=== PATIENT | male | born 1980 | race American Indian/Alaskan Native ===

== ENCOUNTER 2018-07-28 18:38 | Inpatient (IN) | payer MEDICARE ==
[2018-07-28] MEDS ORDERED: ZOFRAN IV ONE (19:07)
[2018-07-28] MEDS ORDERED: NACL 0.9% 1000 ML 1,000 ML IV ONE (19:07)
--- NOTE | 2018-07-28 19:11 | Emergency Department Report ---
ED GI Bleed HPI - General Chief complaint: GI Bleed Stated complaint: VOMITING BLOOD/BLOODY STOOL Time Seen by Provider: 07/28/18 19:06 Source: patient, EMS Mode of arrival: Stretcher Limitations: No Limitations - History of Present Illness Initial comments: Patient is a 38-year-old male presents to emergency room with complaints of epigastric pain and blood in his vomitus and blood in his stool. Patient states his symptoms started 2 days ago. Patient states symptoms worsened. Patient states abdominal pain is a 10 out of 10. Patient denies fever or chills. Patient states the pain is better with rest and worse with eating and palpation. Patient is also complaining of suicidal homicidal ideations. Patient states his plan is to stab himself. Patient status been feeling depressed. Patient denies alcohol use. Patient denies drug use. MD complaint: gross hematemesis, gross hematochezia -: Sudden Location: epigastric Severity scale (0 -10): 9 Quality: sharp Consistency: constant Improves with: rest Worsens with: eating, movement Associated Symptoms: abdominal pain, nausea, vomiting, malaise. denies: epistaxis, fever/chills, headaches, loss of appetite, easy bruising, rash, shortness of breath, syncope, weakness Treatments Prior to Arrival: none - Related Data Allergies Allergy/AdvReac Type Severity Reaction Status Date / Time No Known Allergies Allergy Unverified 07/28/18 18:54 ED Review of Systems ROS: Stated complaint: VOMITING BLOOD/BLOODY STOOL Other details as noted in HPI Constitutional: denies: chills, fever Eyes: denies: eye pain, eye discharge, vision change ENT: denies: ear pain, throat pain Respiratory: denies: cough, shortness of breath, wheezing Cardiovascular: denies: chest pain, palpitations Endocrine: no symptoms reported Gastrointestinal: abdominal pain, nausea, vomiting, hematemesis, hematochezia. denies: diarrhea Genitourinary: denies: urgency, dysuria Musculoskeletal: denies: back pain, joint swelling, arthralgia Skin: denies: rash, lesions Neurological: denies: headache, weakness, paresthesias Psychiatric: depression, homicidal thoughts, suicidal thoughts. denies: anxiety, auditory hallucinations, visual hallucinations Hematological/Lymphatic: denies: easy bleeding, easy bruising ED Past Medical Hx - Past Medical History Previous Medical History?: Yes Hx Psychiatric Treatment: Yes (schizophrenia, bipolar) - Surgical History Past Surgical History?: Yes Additional Surgical History: hernia repair - Family History Family history: no significant - Social History Smoking Status: Current Every Day Smoker Substance Use Type: None ED Physical Exam - General Limitations: No Limitations General appearance: alert, in no apparent distress - Head Head exam: Present: atraumatic, normocephalic - Eye Eye exam: Present: normal appearance, PERRL Pupils: Present: normal accommodation - ENT ENT exam: Present: mucous membranes moist - Neck Neck exam: Present: normal inspection - Respiratory Respiratory exam: Present: normal lung sounds bilaterally. Absent: respiratory distress - Cardiovascular Cardiovascular Exam: Present: regular rate, normal rhythm. Absent: systolic murmur, diastolic murmur, rubs, gallop - GI/Abdominal GI/Abdominal exam: Present: soft, normal bowel sounds. Absent: distended, tenderness, guarding - Rectal Rectal exam: Present: deferred - Extremities Exam Extremities exam: Present: normal inspection - Back Exam Back exam: Present: normal inspection - Neurological Exam Neurological exam: Present: alert, oriented X3 - Psychiatric Psychiatric exam: Present: depressed, flat affect, homicidal ideation, suicidal ideation - Skin Skin exam: Present: warm, dry, intact, normal color. Absent: rash ED Course Vital Signs 07/28/18 07/28/18 18:42 18:56 Temperature 98.3 F 98.6 F Pulse Rate 74 74 Respiratory 16 16 Rate Blood Pressure 118/68 Blood Pressure 118/68 [Right] O2 Sat by Pulse 99 99 Oximetry - Reevaluation(s) Reevaluation #1: Upon initial evaluation, Patient was placed on 1013. 07/28/18 20:20 Discussed all results with patient. Patient will be admitted to the hospitalist service. Patient agrees to plan of care. 07/28/18 20:26 - Consultations Consultation #1: GI paged 07/28/18 20:20 Discussed case with LUCIA Stanley. GI recommends admission to the hospitalist service and nothing by mouth after midnight for a scope in the morning. Protonix 40 mg IV twice a day. 07/28/18 20:25 Consultation #2: Hospitalist consultation for admission. Hospitalist to admit patient. Hospitalist to assume care patient. 07/28/18 20:26 ED Medical Decision Making - Lab Data Result diagrams: 07/28/18 19:22 07/28/18 19:22 - Radiology Data Radiology results: report reviewed PROCEDURE: CT ABDOMEN PELVIS WO CON TECHNIQUE: Computerized axial tomography of the abdomen and pelvis was performed after the IV injection of iodinated nonionic contrast. CT DOSE LENGTH PRODUCT: 785.6 mGycm HISTORY: abd pain PROCEDURE: CT ABDOMEN PELVIS WO CON TECHNIQUE: Computerized axial tomography of the abdomen and pelvis was performed without intravenous contrast. This study is performed without intravascular contrast material and its sensitivity for abdominal and pelvic pathology, including neoplasms, inflammation, abscess, free fluid, thrombosis, arterial dissection and infarction, is reduced compared with a contrast enhanced study. CT DOSE LENGTH PRODUCT: 785.6 mGycm HISTORY: abd pain COMPARISONS: None . FINDINGS: Liver, spleen, pancreas and adrenal glands are within normal limits. Bilateral kidneys demonstrate normal density without calculi or hydronephrosis. Urinary bladder is partially filled with normal outlines. Aorta is of normal caliber. Minimal degree of free fluid is noted in the. There is no free air. Gallbladder is unremarkable. Small bowel loops are within normal limits. 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 Appendix is normal. Vertebral height is normal. IMPRESSION: No acute intra-abdominal or pelvic pathology. - Medical Decision Making Patient is a 38-year-old male presents emergency room with multiple complaints. Patient complaints include nausea and vomiting, abdominal pain, vomiting blood, bright red blood per rectum and suicidal homicidal ideation. Patient placement and 13. Patient's labs unremarkable. CT negative. GI consult. Patient to be admitted to the hospitalist service. - Differential Diagnosis GI bleed. Abdominal pain. HI, SI. Depression. Critical Care Time: Yes Critical care attestation.: If time is entered above; I have spent that time in minutes in the direct care of this critically ill patient, excluding procedure time. Critical Care Time: 45 minutes ED Disposition Clinical Impression: Hematemesis with nausea, Suicidal ideations, Homicidal ideations Abdominal pain Qualifiers: Abdominal location: epigastric Qualified Code(s): R10.13 - Epigastric pain GI bleed Qualifiers: GI bleed type/associated pathology: unspecified gastrointestinal hemorrhage type Qualified Code(s): K92.2 - Gastrointestinal hemorrhage, unspecified Disposition: -09 OP ADMIT IP TO THIS HOSP Is pt being admited?: Yes Does the pt Need Aspirin: No Condition: Critical Time of Disposition: 20:28
[2018-07-28 19:44] LABS: Basophils % (Auto) 0.5 % (0.0-1.8); Eosinophils # (Auto) 0.3 K/mm3 (0.0-0.4); Eosinophils % (Auto) 5.7 % (0.0-4.3); Hematocrit 37.6 % (35.5-45.6); Hemoglobin 13.2 gm/dl (11.8-15.2); Lymphocytes # (Auto) 1.7 K/mm3 (1.2-5.4); Lymphocytes % (Auto) 30.1 % (13.4-35.0); Mean Corpuscular HGB Conc 35 % (32-34); Mean Corpuscular Volume 86 fl (84-94); Monocytes # (Auto) 0.5 K/mm3 (0.0-0.8); Monocytes % (Auto) 9.6 % (0.0-7.3); Platelet Count 273 K/mm3 (140-440); Red Blood Count 4.36 M/mm3 (3.65-5.03)
[2018-07-28 19:59] LABS: Alanine Aminotransferase 24 units/L (7-56); Albumin 3.9 g/dL (3.9-5); BUN/Creatinine Ratio 2; Blood Urea Nitrogen 2 mg/dL (9-20); Calcium 9.1 mg/dL (8.4-10.2); Hemolysis Index 13
[2018-07-28 20:03] LABS: Amphetamine Screen,Urine PRESUMPTIVE NEGATIVE; Benzodiazepines Screen,Urine PRESUMPTIVE NEGATIVE; Cannabinoid Screen,Urine PRESUMPTIVE NEGATIVE; Cocaine Screen,Urine PRESUMPTIVE NEGATIVE; Methadone Screen,Urine PRESUMPTIVE NEGATIVE; Opiate Screen,Urine PRESUMPTIVE NEGATIVE
[2018-07-28 20:08] LABS: Bilirubin,Urine NEG (Negative); Blood,Urine NEG (Negative); Color,Urine Straw (Yellow); Protein,Urine <15 mg/dL mg/dL (Negative); Urobilinogen,Urine < 2.0 mg/dL (<2.0)
[2018-07-28] MEDS ORDERED: PROTONIX IV ONE (20:25)
--- NOTE | 2018-07-28 21:27 | Cat Scan Report ---
PROCEDURE: CT ABDOMEN PELVIS WO CON TECHNIQUE: Computerized axial tomography of the abdomen and pelvis was performed after the IV inject ion of iodinated nonionic contrast. CT DOSE LENGTH PRODUCT: 785.6 mGycm HISTORY: abd pain PROCEDURE: CT ABDOMEN PELVIS WO CON TECHNIQUE: Computerized axial tomography of the abdomen and pelvis was performed without intravenous contrast. This study is performed without intravascular contrast material and its sensitivity for ab dominal and pelvic pathology, including neoplasms, inflammation, abscess, free fluid, thrombosis, art erial dissection and infarction, is reduced compared with a contrast enhanced study. CT DOSE LENGTH PRODUCT: 785.6 mGycm HISTORY: abd pain COMPARISONS: None . FINDINGS: Liver, spleen, pancreas and adrenal glands are within normal limits. Bilateral kidneys demonstrate no rmal density without calculi or hydronephrosis. Urinary bladder is partially filled with normal outli robin. Aorta is of normal caliber. Minimal degree of free fluid is noted in the. There is no free air. Gallbladder is unremarkable. Small bowel loops are within normal limits. There is malrotation of colo n without any evidence of obstruction. Appendix is normal. Vertebral height is normal. IMPRESSION: No acute intra-abdominal or pelvic pathology. This document is electronically signed by Georges Valenzuela MD., Jul 28 2018 09:25:50 PM ET
[2018-07-28] MEDS ORDERED: SODIUM CHLORIDE FLUSH SYRINGE 10 ML IV PRN (22:21)
[2018-07-28] MEDS ORDERED: DILAUDID IV PRN (22:21)
[2018-07-28] MEDS ORDERED: ZOFRAN IV PRN (22:21)
[2018-07-28] MEDS ORDERED: TYLENOL PO PRN (22:21)
[2018-07-28] MEDS ORDERED: PERCOCET 5/325 PO PRN (22:21)
[2018-07-28] MEDS ORDERED: K-DUR PO ONE (22:25)
--- NOTE | 2018-07-28 22:28 | History and Physical Report ---
History of Present Illness Date of examination: 07/28/18 Chief complaint: Bloody emesis History of present illness: Patient is a 38 year old -[place] male with history of psychiatric di sorder who presented to the ED on account of 2-3 days history of bloody emesis which he described as dark red in color. He also has positive history of passage of dark stool. He has associated generalized abdominal pain, shortness of breath, exertion, palpitation, dry cough, headaches and lightheadedness. He denies chest pain, fever, chills, sore throat, runny nose or congestion, leg swelling, orthopnea or PND. No history of chronic NSAID use. He reports prior history of presenting complaint about 3 months ago in another hospital, however no endoscopy was done. In the ED, patient admits to having suicidal ideation. He plans to kill himself with a knife. No prior history of suicide attempts. He was then placed on 1013. Past History Past Medical History: other (schizophrenia and bipolar disorder) Past Surgical History: hernia repair Social history: smoking (he has 9 years history of cigarette smoking. He currently smokes one pack of cigarette per day. He denies alcohol or illicit drug use) Family history: other (reviewed and noncontributory to GI bleed) Medications and Allergies Allergies Allergy/AdvReac Type Severity Reaction Status Date / Time No Known Allergies Allergy Verified 07/28/18 22:25 Active Meds: Active Medications Acetaminophen (Tylenol) 650 mg PO Q4H PRN PRN Reason: Pain MILD(1-3)/Fever >100.5/ZAMBRANO Hydromorphone HCl (Dilaudid) 0.5 mg IV Q3H PRN PRN Reason: Pain , Severe (7-10) Potassium Chloride/Sodium Chloride (Ns/Kcl 20meq) 20 meq in 1,000 mls @ 100 mls/hr IV DIRECT SEBAS Ondansetron HCl (Zofran) 4 mg IV Q8H PRN PRN Reason: Nausea And Vomiting Oxycodone/Acetaminophen (Percocet 5/325) 1 tab PO Q6H PRN PRN Reason: Pain, Moderate (4-6) Pantoprazole Sodium (Protonix) 40 mg IV QDAY SEBAS Potassium Chloride (K-Dur) 20 meq PO ONCE ONE Stop: 07/28/18 22:26 Sodium Chloride (Sodium Chloride Flush Syringe 10 Ml) 10 ml IV BID SEBAS Sodium Chloride (Sodium Chloride Flush Syringe 10 Ml) 10 ml IV PRN PRN PRN Reason: LINE FLUSH Review of Systems All systems: negative (except as documented in the HPI, 14 point system reviewed were negative) Exam - Constitutional Vitals: Temp Pulse Resp BP Pulse Ox 98.6 F 74 16 118/68 99 07/28/18 18:56 07/28/18 18:56 07/28/18 18:56 07/28/18 18:56 07/28/18 18:56 General appearance: Present: no acute distress - EENT Eyes: Present: PERRL, EOM intact ENT: hearing intact, clear oral mucosa - Neck Neck: Present: supple - Respiratory Respiratory effort: normal Respiratory: bilateral: CTA - Cardiovascular Rhythm: regular Heart Sounds: Present: S1 & S2 - Extremities Extremities: pulses symmetrical, No edema - Abdominal General gastrointestinal: Present: soft, tender (mild and generalized), normal bowel sounds Male genitourinary: Present: deferred - Integumentary Integumentary: Present: clear, warm, dry - Musculoskeletal Musculoskeletal: strength equal bilaterally - Psychiatric Psychiatric: other (positive suicidal ideation) - Neurologic Neurologic: CNII-XII intact Results - Labs CBC & Chem 7: 07/28/18 22:35 07/28/18 19:22 Labs: Laboratory Last Values WBC 5.6 K/mm3 (4.5-11.0) 07/28/18 19:22 RBC 4.36 M/mm3 (3.65-5.03) 07/28/18 19:22 Hgb 13.2 gm/dl (11.8-15.2) 07/28/18 19:22 Hct 37.6 % (35.5-45.6) 07/28/18 19:22 MCV 86 fl (84-94) 07/28/18 19:22 MCH 30 pg (28-32) 07/28/18 19:22 MCHC 35 % (32-34) H 07/28/18 19:22 RDW 14.0 % (13.2-15.2) 07/28/18 19:22 Plt Count 273 K/mm3 (140-440) 07/28/18 19:22 Lymph % (Auto) 30.1 % (13.4-35.0) 07/28/18 19:22 [place] % (Auto) 9.6 % (0.0-7.3) H 07/28/18 19:22 Eos % (Auto) 5.7 % (0.0-4.3) H 07/28/18 19:22 Baso % (Auto) 0.5 % (0.0-1.8) 07/28/18 19:22 Lymph # 1.7 K/mm3 (1.2-5.4) 07/28/18 19:22 [place] # 0.5 K/mm3 (0.0-0.8) 07/28/18 19:22 Eos # 0.3 K/mm3 (0.0-0.4) 07/28/18 19:22 Baso # 0.0 K/mm3 (0.0-0.1) 07/28/18 19:22 Seg Neutrophils % 54.1 % (40.0-70.0) 07/28/18 19:22 Seg Neutrophils # 3.0 K/mm3 (1.8-7.7) 07/28/18 19:22 Sodium 141 mmol/L (137-145) 07/28/18 19:22 Potassium 3.4 mmol/L (3.6-5.0) L 07/28/18 19:22 Chloride 102.4 mmol/L (98-107) 07/28/18 19:22 Carbon Dioxide 24 mmol/L (22-30) 07/28/18 19:22 18 mmol/L 07/28/18 19:22 BUN 2 mg/dL (9-20) L 07/28/18 19:22 1.0 mg/dL (0.8-1.5) 07/28/18 19:22 Estimated GFR > 60 ml/min 07/28/18 19:22 2 % 07/28/18 19:22 Glucose 92 mg/dL (75-100) 07/28/18 19:22 Calcium 9.1 mg/dL (8.4-10.2) 07/28/18 19:22 0.40 mg/dL (0.1-1.2) 07/28/18 19:22 AST 70 units/L (5-40) H 07/28/18 19:22 ALT 24 units/L (7-56) 07/28/18 19:22 85 units/L (35-129) 07/28/18 19:22 7.1 g/dL (6.3-8.2) 07/28/18 19:22 3.9 g/dL (3.9-5) 07/28/18 19:22 1.2 % 07/28/18 19:22 Straw (Yellow) 07/28/18 19:32 Clear (Clear) 07/28/18 19:32 7.0 (5.0-7.0) 07/28/18 19:32 Ur Specific [place] 1.003 (1.003-1.030) 07/28/18 19:32 <15 mg/dl mg/dL (Negative) 07/28/18 19:32 Neg mg/dL (Negative) 07/28/18 19:32 Neg mg/dL (Negative) 07/28/18 19:32 Neg (Negative) 07/28/18 19:32 Neg (Negative) 07/28/18 19:32 Neg (Negative) 07/28/18 19:32 < 2.0 mg/dL (<2.0) 07/28/18 19:32 Ur Leukocyte Esterase Neg (Negative) 07/28/18 19:32 0.0 /HPF (0.0-6.0) 07/28/18 19:32 1.0 /HPF (0.0-6.0) 07/28/18 19:32 Salicylates < 0.3 mg/dL (2.8-20.0) L 07/28/18 19:22 Presumptive negative 07/28/18 19:32 Presumptive negative 07/28/18 19:32 Acetaminophen < 5.0 ug/mL (10.0-30.0) L 07/28/18 19:22 Ur Barbiturates Screen Presumptive negative 07/28/18 19:32 Ur Phencyclidine Scrn Presumptive negative 07/28/18 19:32 Ur Amphetamines Screen Presumptive negative 07/28/18 19:32 U Benzodiazepines Scrn Presumptive negative 07/28/18 19:32 Presumptive negative 07/28/18 19:32 U Marijuana (THC) Screen Presumptive negative 07/28/18 19:32 Disclamer 07/28/18 19:32 Plasma/Serum Alcohol < 0.01 % (0-0.07) 07/28/18 19:22 Assessment and Plan Assessment and plan: Upper and lower GI bleed -H/H stable, will monitor closely -On IV Protonix -GI consulted in the ED Mild hypokalemia -We will replete and monitor K level -We'll check magnesium level Suicidal ideation -On 1013 Transaminitis -We will monitor level Psychiatric disorder (schizophrenia and bipolar) -Psych team follow-up DVT prophylaxis with SCD Disposition: For psych evaluation when medically cleared Time spent: 38 minutes
[2018-07-28 22:45] LABS: Hematocrit 37.3 % (35.5-45.6); Hemoglobin 12.9 gm/dl (11.8-15.2)
[2018-07-29 06:30] LABS: Hematocrit 38.9 % (35.5-45.6); Hemoglobin 13.1 gm/dl (11.8-15.2)
[2018-07-29 06:49] LABS: Alanine Aminotransferase 20 units/L (7-56); Albumin 3.5 g/dL (3.9-5); BUN/Creatinine Ratio 3; Blood Urea Nitrogen 3 mg/dL (9-20); Calcium 8.7 mg/dL (8.4-10.2); Hemolysis Index 8
[2018-07-29 07:03] LABS: Bilirubin,Direct < 0.2 mg/dL (0-0.2)
--- NOTE | 2018-07-29 08:22 | Progress Note ---
Assessment and Plan Assessment and plan: Patient is a 38 yo man with a history of schizophrenia, bipolar disoder and tobacco dependency who presented to [facility] with bloody emesis and dark stools. In the ED, patient admits to having suicidal ideation. He plans to kill himself with a knife. No prior history of suicide attempts. He was then placed on 101. Upper and lower GI bleed with H/H normal: treat with iv protonix and consulted GI, will monitor cbc closely Mild hypokalemia-We will replete and monitor K level Suicidal ideation-On 1012: consulted Psych Isolated AST mild elevation, 70-->47, normal ALT, bilirubin, alk phosph: continue to monitor Psychiatric disorder (schizophrenia and bipolar)-Psych team follow-up Hypokalemia: repleted and normal, continue to monitor bmp Tobacco dependency: counseled on stopping DVT prophylaxis with SCD Disposition: continue inpatient care, await GI and psych evaluation and then d/c to inpatient psych when medically cleared History Interval history: Patient was seen and examined. Follow-up on current diagnosis of bloody emesis and SI. No overnight events reported to me. Patient denies any chest pain, shortness breath, or severe headaches. Imaging, nursing note, chart, labs and old chart reviewed. Discussed with patient. Hospitalist Physical - Physical exam Narrative exam: Gen: WDWN, NAD, Awake, Alert, Orientated HEENT: NCAT, EOMI, PERRL, OP Clear Neck: supple, no adenopathy, no thyromegaly, no JVD CVS/Heart: RRR, normal S1S2, pulses present bilaterally Chest/Lungs: CTA B, Symmetrical chest expansion, good air entry bilaterally GI/Abdomen: soft, NTND, good bowel sounds, no guarding or rebound /Bladder: no suprapubic tenderness, no CVA or paraspinal tenderness Extermity/Skin: no c/c/e, no obvious rash MSK: FROM x 4 Neuro: CN 2-12 grossly intact, no new focal deficits Psych: calm - Constitutional Vitals: Temp Pulse Resp BP Pulse Ox 98.0 F 62 18 113/68 96 07/29/18 06:11 07/29/18 06:11 07/29/18 06:11 07/29/18 06:11 07/29/18 06:11 General appearance: Present: no acute distress Results - Labs CBC & Chem 7: 07/29/18 05:56 07/29/18 05:56 Labs: Laboratory Last Values WBC 5.6 K/mm3 (4.5-11.0) 07/28/18 19:22 RBC 4.36 M/mm3 (3.65-5.03) 07/28/18 19:22 Hgb 13.1 gm/dl (11.8-15.2) 07/29/18 05:56 Hct 38.9 % (35.5-45.6) 07/29/18 05:56 MCV 86 fl (84-94) 07/28/18 19:22 MCH 30 pg (28-32) 07/28/18 19:22 MCHC 35 % (32-34) H 07/28/18 19:22 RDW 14.0 % (13.2-15.2) 07/28/18 19:22 Plt Count 273 K/mm3 (140-440) 07/28/18 19:22 Lymph % (Auto) 30.1 % (13.4-35.0) 07/28/18 19:22 [place] % (Auto) 9.6 % (0.0-7.3) H 07/28/18 19:22 Eos % (Auto) 5.7 % (0.0-4.3) H 07/28/18 19:22 Baso % (Auto) 0.5 % (0.0-1.8) 07/28/18 19:22 Lymph # 1.7 K/mm3 (1.2-5.4) 07/28/18 19:22 [place] # 0.5 K/mm3 (0.0-0.8) 07/28/18 19:22 Eos # 0.3 K/mm3 (0.0-0.4) 07/28/18 19:22 Baso # 0.0 K/mm3 (0.0-0.1) 07/28/18 19:22 Seg Neutrophils % 54.1 % (40.0-70.0) 07/28/18 19:22 Seg Neutrophils # 3.0 K/mm3 (1.8-7.7) 07/28/18 19:22 Sodium 142 mmol/L (137-145) 07/29/18 05:56 Potassium 3.7 mmol/L (3.6-5.0) 07/29/18 05:56 Chloride 105.9 mmol/L (98-107) 07/29/18 05:56 Carbon Dioxide 25 mmol/L (22-30) 07/29/18 05:56 15 mmol/L 07/29/18 05:56 BUN 3 mg/dL (9-20) L 07/29/18 05:56 1.2 mg/dL (0.8-1.5) 07/29/18 05:56 Estimated GFR > 60 ml/min 07/29/18 05:56 3 % 07/29/18 05:56 Glucose 75 mg/dL (75-100) 07/29/18 05:56 Calcium 8.7 mg/dL (8.4-10.2) 07/29/18 05:56 Magnesium 2.00 mg/dL (1.7-2.3) 07/29/18 05:56 0.50 mg/dL (0.1-1.2) 07/29/18 05:56 < 0.2 mg/dL (0-0.2) 07/29/18 05:56 0.3 mg/dL 07/29/18 05:56 AST 47 units/L (5-40) H 07/29/18 05:56 ALT 20 units/L (7-56) 07/29/18 05:56 78 units/L (35-129) 07/29/18 05:56 6.1 g/dL (6.3-8.2) L 07/29/18 05:56 3.5 g/dL (3.9-5) L 07/29/18 05:56 1.3 % 07/29/18 05:56 Straw (Yellow) 07/28/18 19:32 Clear (Clear) 07/28/18 19:32 7.0 (5.0-7.0) 07/28/18 19:32 Ur Specific [place] 1.003 (1.003-1.030) 07/28/18 19:32 <15 mg/dl mg/dL (Negative) 07/28/18 19:32 Neg mg/dL (Negative) 07/28/18 19:32 Neg mg/dL (Negative) 07/28/18 19:32 Neg (Negative) 07/28/18 19:32 Neg (Negative) 07/28/18 19:32 Neg (Negative) 07/28/18 19:32 < 2.0 mg/dL (<2.0) 07/28/18 19:32 Ur Leukocyte Esterase Neg (Negative) 07/28/18 19:32 0.0 /HPF (0.0-6.0) 07/28/18 19:32 1.0 /HPF (0.0-6.0) 07/28/18 19:32 Salicylates < 0.3 mg/dL (2.8-20.0) L 07/28/18 19:22 Presumptive negative 07/28/18 19:32 Presumptive negative 07/28/18 19:32 Acetaminophen < 5.0 ug/mL (10.0-30.0) L 07/28/18 19:22 Ur Barbiturates Screen Presumptive negative 07/28/18 19:32 Ur Phencyclidine Scrn Presumptive negative 07/28/18 19:32 Ur Amphetamines Screen Presumptive negative 07/28/18 19:32 U Benzodiazepines Scrn Presumptive negative 07/28/18 19:32 Presumptive negative 07/28/18 19:32 U Marijuana (THC) Screen Presumptive negative 07/28/18 19:32 Disclamer 07/28/18 19:32 Plasma/Serum Alcohol < 0.01 % (0-0.07) 07/28/18 19:22 Active Medications - Current Medications Current Medications: Generic Name Dose Route Start Last Admin Trade Name Freq PRN Reason Stop Dose Admin Acetaminophen 650 mg 07/28/18 22:21 Tylenol PO Q4H PRN Pain MILD(1-3)/Fever >100.5/ZAMBRANO Hydromorphone HCl 0.5 mg 07/28/18 22:21 Dilaudid IV Q3H PRN Pain , Severe (7-10) Potassium Chloride/Sodium Chloride 20 meq in 1,000 mls @ 100 mls/hr 07/28/18 23:00 Ns/Kcl 20meq IV DIRECT SEBAS Ondansetron HCl 4 mg 07/28/18 22:21 Zofran IV Q8H PRN Nausea And Vomiting Oxycodone/Acetaminophen 1 tab 07/28/18 22:21 Percocet 5/325 PO Q6H PRN Pain, Moderate (4-6) Pantoprazole Sodium 40 mg 07/29/18 10:00 Protonix IV QDAY SEBAS Sodium Chloride 10 ml 07/29/18 10:00 Sodium Chloride Flush Syringe 10 Ml IV BID SEBAS Sodium Chloride 10 ml 07/28/18 22:21 Sodium Chloride Flush Syringe 10 Ml IV PRN PRN LINE FLUSH
[2018-07-29] MEDS: NS/KCL 20MEQ 20 MEQ/1,000 ML BAG IV SCH (08:51)
[2018-07-29] MEDS: SODIUM CHLORIDE FLUSH SYRINGE 10 ML IV SCH ×2 (09:38→23:18)
[2018-07-29] MEDS ORDERED: PROTONIX IV SCH (10:00)
[2018-07-29 11:04] LABS: Hematocrit 39.4 % (35.5-45.6); Hemoglobin 13.1 gm/dl (11.8-15.2)
[2018-07-29] MEDS ORDERED: NACL 0.9% 1000 ML 1,000 ML IV SCH (12:00)
[2018-07-29] MEDS ORDERED: WATER FOR IRRIG STERILE IR ONE (12:31)
--- NOTE | 2018-07-29 14:33 | Anesthesia Consultation ---
Anesthesia Consult and Med Hx Date of service: 07/29/18 - Airway Anesthetic Teeth Evaluation: Poor, Chipped (some front teeth) ROM Head & Neck: Adequate Mental/Hyoid Distance: Adequate Mallampati Class: Class II Intubation Access Assessment: Probably Good - Pre-Operative Health Status ASA Pre-Surgery Classification: ASA2 Proposed Anesthetic Plan: MAC - Pulmonary Hx Smoking: Yes (Current smoker 1 p/d x 13 years) Hx Asthma: No COPD: No Hx Pneumonia: No - Central Nervous System Hx Psychiatric Problems: Yes (schizophrenia, bipolar disorder, suisidal ideation) - Gastrointestinal Hx Gastroesophageal Reflux Disease: Yes (abdominal pain, GI bleed) - Endocrine Hx End Stage Renal Disease: No
--- NOTE | 2018-07-29 14:34 | Anesthesia Day of Surgery ---
Anesthesia Day of Surgery - Day of Surgery Patient Examined: Yes Patient H&P Reviewed: Yes Patient is NPO: Yes
[2018-07-29] MEDS ORDERED: DIPRIVAN 10 MG/ML IV ONE (15:23)
--- NOTE | 2018-07-29 15:30 | Post Operative Note ---
Pre-op diagnosis: gi bleed Post-op diagnosis: same Findings: EGD: mild hiatal hernia - mild gastritis - negative other Procedure: EGD Anesthesia: MAC Surgeon: HERMANN KAM Estimated blood loss: none Pathology: list Specimen disposition: to lab Condition: stable Disposition: floor
--- NOTE | 2018-07-29 15:58 | Operative Report ---
PROCEDURE PERFORMED: EGD. INDICATIONS: 1. Anemia. 2. Possible gastrointestinal bleed. MEDICATIONS: Propofol per HEARING EXAMINER. COMPLICATIONS: None. DESCRIPTION OF PROCEDURE: The patient was brought to the procedure suite. The patient had the procedure discussed with him at length. All risks, complications, and benefits discussed after which the patient signed for the procedure to be performed. The patient was placed in left lateral decubitus position. Mouth block was placed in the patient's oral cavity. After adequate sedation medication as above, endoscope placed in the mouth and brought to the level of second portion of duodenum. Retroflexion view performed. The patient's vital signs remained stable throughout the procedure. FINDINGS: Small hiatal hernia at GE junction at 38 cm from the gums. The esophagus otherwise appeared to be normal. Mild gastritis without significant pathology noted in the stomach. Stomach otherwise appeared to be normal. The duodenum appeared to be normal. Retroflexion view performed in the stomach showed no other pathology other than noted above. The patient tolerated the procedure well. No complications noted during the procedure. IMPRESSION: 1. Hiatal hernia. 2. Otherwise normal esophagus. 3. Mild gastritis. 4. Otherwise normal EGD. RECOMMENDATIONS: 1. Follow H and H, . 2. PPI daily. 3. Advance diet. 4. Okay to discharge from GI standpoint, we will sign off, call if needed. JOB# [id number] [facility]
--- NOTE | 2018-07-29 23:57 | Consultation ---
REFERRING PHYSICIAN: Gerard Llamas MD INDICATIONS: 1. Gastrointestinal bleed. 2. Coffee-ground emesis. HISTORY OF PRESENT ILLNESS: The patient is a 38-year-old black male with history of psychiatric disorder. The patient presented with 2-3 days of dark coffee-ground like emesis. He reports a history of recent dark stools. He reports no weight loss. He reports no history of NSAID use recently. He denies weight loss. Denies a history of GI bleed in the past. The patient subsequently came to Emergency Room, was noted to be heme positive, admitted and GI consulted. The patient did present with kind of some suicidal ideation. PAST MEDICAL HISTORY: Bipolar disorder and schizophrenia. PAST SURGICAL HISTORY: Hernia repair. MEDICATIONS: Reviewed and updated in chart. ALLERGIES: No known drug allergies. SOCIAL HISTORY: Denies alcohol or tobacco. FAMILY HISTORY: Negative for colon cancer, IBD, or liver disease. REVIEW OF SYSTEMS: GENERAL: Reports mild weakness. HEENT: No visual complaints or tinnitus. PULMONARY: No shortness of breath. No cough. No chest pain. GASTROINTESTINAL: Reports coffee emesis and dark stools. All points of 13-point review of systems otherwise negative. PHYSICAL EXAMINATION: VITAL SIGNS: Temperature 98.2, pulse 52, respirations 18, blood pressure 125/71. GENERAL: Fairly nourished male, in no acute distress. HEENT: Pupils are round and reactive. PULMONARY: Clear to auscultation bilaterally. CARDIOVASCULAR: Regular rhythm. Normal S1, S2. ABDOMEN: Positive bowel sounds, soft. SKIN: No obvious rashes. LABORATORY DATA: Labs pertinent for white count of 5.6, hemoglobin and hematocrit 13.2 and 37.6, platelet count of 273. Chem-7 within normal limits. LFTs within normal limits. Coags within normal limits. ASSESSMENT AND PLAN: A 38-year-old male presents with signs and symptoms consistent with possible upper gastrointestinal bleed, though stable H and H. PLAN: 1. PPI IV daily. 2. Avoid NSAID and aspirin. 3. N.p.o. 4. Plan EGD today. 5. Further recommendation based on EGD and based on progress. JOB# [id number] CAB/NTS
[2018-07-30] MEDS: NS/KCL 20MEQ 20 MEQ/1,000 ML BAG IV SCH ×2 (01:10→18:38)
[2018-07-30] MEDS ORDERED: MIRALAX 3350 PO PRN (04:33)
[2018-07-30] MEDS ORDERED: MILK OF MAGNESIA PO PRN (04:34)
[2018-07-30 05:25] LABS: Hematocrit 36.6 % (35.5-45.6); Hemoglobin 12.5 gm/dl (11.8-15.2); Mean Corpuscular HGB Conc 34 % (32-34); Mean Corpuscular Volume 87 fl (84-94); Platelet Count 279 K/mm3 (140-440); Red Cell Distribution Width 14.1 % (13.2-15.2)
[2018-07-30 05:49] LABS: BUN/Creatinine Ratio 6; Blood Urea Nitrogen 6 mg/dL (9-20); Calcium 8.2 mg/dL (8.4-10.2)
[2018-07-30 05:50] LABS: Alanine Aminotransferase 16 units/L (7-56); Albumin 3.5 g/dL (3.9-5); Hemolysis Index 9
[2018-07-30] MEDS: PROTONIX PO SCH (09:14)
[2018-07-30] MEDS: COLACE PO SCH ×2 (09:14→21:25)
[2018-07-30] MEDS: SODIUM CHLORIDE FLUSH SYRINGE 10 ML IV SCH ×2 (09:14→21:25)
--- NOTE | 2018-07-30 13:40 | Progress Note ---
Assessment and Plan Assessment and plan: Patient is a 38 yo man with a history of schizophrenia, bipolar disoder and tobacco dependency who presented to [facility] with bloody emesis and dark stools. In the ED, patient admits to having suicidal ideation. He plans to kill himself with a knife. No prior history of suicide attempts. He was then placed on 1012. Upper and lower GI bleed with H/H normal due to Mild Gastritis and mild hiatal hernia: treated with iv protonix and consulted GI, will monitor cbc closely Mild hypokalemia-We will replete and monitor K level Suicidal ideation-On 1012: consulted Psych Isolated AST mild elevation, 70-->47, normal ALT, bilirubin, alk phosph: continue to monitor Psychiatric disorder (schizophrenia and bipolar)-Psych team follow-up Hypokalemia: repleted and normal, continue to monitor bmp Tobacco dependency: counseled on stopping DVT prophylaxis with SCD Disposition: medically cleared for inpatient psych. History Interval history: Patient was seen and examined. Follow-up on current diagnosis of bloody emesis and SI. No overnight events reported to me. Patient denies any chest pain, shortness breath, or severe headaches. Imaging, nursing note, chart, labs and old chart reviewed. Discussed with patient. Hospitalist Physical - Physical exam Narrative exam: Gen: WDWN, NAD, Awake, Alert, Orientated HEENT: NCAT, EOMI, PERRL, OP Clear Neck: supple, no adenopathy, no thyromegaly, no JVD CVS/Heart: RRR, normal S1S2, pulses present bilaterally Chest/Lungs: CTA B, Symmetrical chest expansion, good air entry bilaterally GI/Abdomen: soft, NTND, good bowel sounds, no guarding or rebound /Bladder: no suprapubic tenderness, no CVA or paraspinal tenderness Extermity/Skin: no c/c/e, no obvious rash MSK: FROM x 4 Neuro: CN 2-12 grossly intact, no new focal deficits Psych: calm - Constitutional Vitals: Temp Pulse Resp BP Pulse Ox 97.6 F 40 L 22 133/69 100 07/30/18 04:14 07/30/18 04:14 07/30/18 04:14 07/30/18 04:14 07/30/18 04:14 General appearance: Present: no acute distress Results - Labs CBC & Chem 7: 07/30/18 04:48 07/30/18 04:48 Labs: Laboratory Last Values WBC 4.3 K/mm3 (4.5-11.0) L 07/30/18 04:48 RBC 4.20 M/mm3 (3.65-5.03) 07/30/18 04:48 Hgb 12.5 gm/dl (11.8-15.2) 07/30/18 04:48 Hct 36.6 % (35.5-45.6) 07/30/18 04:48 MCV 87 fl (84-94) 07/30/18 04:48 MCH 30 pg (28-32) 07/30/18 04:48 MCHC 34 % (32-34) 07/30/18 04:48 RDW 14.1 % (13.2-15.2) 07/30/18 04:48 Plt Count 279 K/mm3 (140-440) 07/30/18 04:48 Lymph % (Auto) 30.1 % (13.4-35.0) 07/28/18 19:22 [place] % (Auto) 9.6 % (0.0-7.3) H 07/28/18 19:22 Eos % (Auto) 5.7 % (0.0-4.3) H 07/28/18 19:22 Baso % (Auto) 0.5 % (0.0-1.8) 07/28/18 19:22 Lymph # 1.7 K/mm3 (1.2-5.4) 07/28/18 19:22 [place] # 0.5 K/mm3 (0.0-0.8) 07/28/18 19:22 Eos # 0.3 K/mm3 (0.0-0.4) 07/28/18 19:22 Baso # 0.0 K/mm3 (0.0-0.1) 07/28/18 19:22 Seg Neutrophils % 54.1 % (40.0-70.0) 07/28/18 19:22 Seg Neutrophils # 3.0 K/mm3 (1.8-7.7) 07/28/18 19:22 Sodium 140 mmol/L (137-145) 07/30/18 04:48 Potassium 3.7 mmol/L (3.6-5.0) 07/30/18 04:48 Chloride 104.6 mmol/L (98-107) 07/30/18 04:48 Carbon Dioxide 25 mmol/L (22-30) 07/30/18 04:48 14 mmol/L 07/30/18 04:48 BUN 6 mg/dL (9-20) L 07/30/18 04:48 1.0 mg/dL (0.8-1.5) 07/30/18 04:48 Estimated GFR > 60 ml/min 07/30/18 04:48 6 % 07/30/18 04:48 Glucose 77 mg/dL (75-100) 07/30/18 04:48 Calcium 8.2 mg/dL (8.4-10.2) L 07/30/18 04:48 Magnesium 2.00 mg/dL (1.7-2.3) 07/29/18 05:56 0.40 mg/dL (0.1-1.2) 07/30/18 04:48 < 0.2 mg/dL (0-0.2) 07/29/18 05:56 0.3 mg/dL 07/29/18 05:56 AST 31 units/L (5-40) 07/30/18 04:48 ALT 16 units/L (7-56) 07/30/18 04:48 71 units/L (35-129) 07/30/18 04:48 6.1 g/dL (6.3-8.2) L 07/30/18 04:48 3.5 g/dL (3.9-5) L 07/30/18 04:48 1.3 % 07/30/18 04:48 Straw (Yellow) 07/28/18 19:32 Clear (Clear) 07/28/18 19:32 7.0 (5.0-7.0) 07/28/18 19:32 Ur Specific [place] 1.003 (1.003-1.030) 07/28/18 19:32 <15 mg/dl mg/dL (Negative) 07/28/18 19:32 Neg mg/dL (Negative) 07/28/18 19:32 Neg mg/dL (Negative) 07/28/18 19:32 Neg (Negative) 07/28/18 19:32 Neg (Negative) 07/28/18 19:32 Neg (Negative) 07/28/18 19:32 < 2.0 mg/dL (<2.0) 07/28/18 19:32 Ur Leukocyte Esterase Neg (Negative) 07/28/18 19:32 0.0 /HPF (0.0-6.0) 07/28/18 19:32 1.0 /HPF (0.0-6.0) 07/28/18 19:32 Salicylates < 0.3 mg/dL (2.8-20.0) L 07/28/18 19:22 Presumptive negative 07/28/18 19:32 Presumptive negative 07/28/18 19:32 Acetaminophen < 5.0 ug/mL (10.0-30.0) L 07/28/18 19:22 Ur Barbiturates Screen Presumptive negative 07/28/18 19:32 Ur Phencyclidine Scrn Presumptive negative 07/28/18 19:32 Ur Amphetamines Screen Presumptive negative 07/28/18 19:32 U Benzodiazepines Scrn Presumptive negative 07/28/18 19:32 Presumptive negative 07/28/18 19:32 U Marijuana (THC) Screen Presumptive negative 07/28/18 19:32 Disclamer 07/28/18 19:32 Plasma/Serum Alcohol < 0.01 % (0-0.07) 07/28/18 19:22 Active Medications - Current Medications Current Medications: Generic Name Dose Route Start Last Admin Trade Name Freq PRN Reason Stop Dose Admin Acetaminophen 650 mg 07/28/18 22:21 Tylenol PO Q4H PRN Pain MILD(1-3)/Fever >100.5/ZAMBRANO Docusate Sodium 100 mg 07/30/18 10:00 07/30/18 09:14 Colace PO 100 mg BID SEBAS Administration Hydromorphone HCl 0.5 mg 07/28/18 22:21 Dilaudid IV Q3H PRN Pain , Severe (7-10) Potassium Chloride/Sodium Chloride 20 meq in 1,000 mls @ 100 mls/hr 07/28/18 23:00 07/30/18 01:10 Ns/Kcl 20meq IV 100 mls/hr DIRECT SEBAS Administration Magnesium Hydroxide 30 ml 07/30/18 04:34 Milk Of Magnesia PO QDAY PRN Constipation Ondansetron HCl 4 mg 07/28/18 22:21 Zofran IV Q8H PRN Nausea And Vomiting Oxycodone/Acetaminophen 1 tab 07/28/18 22:21 07/29/18 19:26 Percocet 5/325 PO 1 tab Q6H PRN Administration Pain, Moderate (4-6) Pantoprazole Sodium 40 mg 07/30/18 10:00 07/30/18 09:14 Protonix PO 40 mg DAILY SEBAS Administration Polyethylene Glycol 17 gm 07/30/18 04:33 Miralax 3350 PO QDAY PRN Constipation Sodium Chloride 10 ml 07/29/18 10:00 07/30/18 09:14 Sodium Chloride Flush Syringe 10 Ml IV Not Given BID SEBAS Sodium Chloride 10 ml 07/28/18 22:21 Sodium Chloride Flush Syringe 10 Ml IV PRN PRN LINE FLUSH
--- NOTE | 2018-07-30 18:21 | Consultation ---
History of Present Illness - Reason for Consult Consult date: 07/30/18 Reason for consult: psychiatric evaluation - Chief Complaint Chief complaint: Bloody emesis - History of Present Psychiatric Illness 38 year old AAM with history of schizoaffective disorder, bipolar type and takes depakote 500mg bid, risperdal 2 or 3mg hs, trazodone 50mg, and cogentin daily. He was homeless for 8-9 years and within the last 1-2 months, he was able to secure an apartment with a housing voucher. His SS was restarted. He talked about his heart rate being low and says it is because he took 2 trazodone instead of 1. He did not discuss the GI bleed or recent procedure. His thought process was mildly disorganized. The record indicates he reported suicidal ideation with a plan to stab himself. He denies this. Medications and Allergies Allergies Allergy/AdvReac Type Severity Reaction Status Date / Time No Known Allergies Allergy Verified 07/28/18 22:25 Active Meds: Active Medications Acetaminophen (Tylenol) 650 mg PO Q4H PRN PRN Reason: Pain MILD(1-3)/Fever >100.5/ZAMBRANO Docusate Sodium (Colace) 100 mg PO BID [facility] Last Admin: 07/30/18 09:14 Dose: 100 mg Documented by: Hydromorphone HCl (Dilaudid) 0.5 mg IV Q3H PRN PRN Reason: Pain , Severe (7-10) Potassium Chloride/Sodium Chloride (Ns/Kcl 20meq) 20 meq in 1,000 mls @ 100 mls/hr IV DIRECT [facility] Last Admin: 07/30/18 01:10 Dose: 100 mls/hr Documented by: Magnesium Hydroxide (Milk Of Magnesia) 30 ml PO QDAY PRN PRN Reason: Constipation Ondansetron HCl (Zofran) 4 mg IV Q8H PRN PRN Reason: Nausea And Vomiting Oxycodone/Acetaminophen (Percocet 5/325) 1 tab PO Q6H PRN PRN Reason: Pain, Moderate (4-6) Last Admin: 07/29/18 19:26 Dose: 1 tab Documented by: Pantoprazole Sodium (Protonix) 40 mg PO DAILY [facility] Last Admin: 07/30/18 09:14 Dose: 40 mg Documented by: Polyethylene Glycol (Miralax 3350) 17 gm PO QDAY PRN PRN Reason: Constipation Sodium Chloride (Sodium Chloride Flush Syringe 10 Ml) 10 ml IV BID SEBAS Last Admin: 07/30/18 09:14 Dose: Not Given Documented by: Sodium Chloride (Sodium Chloride Flush Syringe 10 Ml) 10 ml IV PRN PRN PRN Reason: LINE FLUSH Past psychiatric history - past Psychiatric treatment and history Psych: Bipolar (a), Schizophrenia psychiatric treatment history: He was diagnosed with schizoaffective disorder, bipolar type 10 years ago. - Social History Social history: single, Lives alone Mental Status Exam - Vital signs Last Vital Signs Temp 98.2 F 07/30/18 16:38 Pulse 53 L 07/30/18 16:38 Resp 18 07/30/18 16:38 BP 118/63 07/30/18 16:38 Pulse Ox 98 07/30/18 16:38 - Exam Orientation: time, place, person Affect: normal Mood: calm Thought content: other (no SI/HI) Thought Process: Disorganized Perceptions: none Speech: normal rate and pattern Concentration: focused Motor activity: restless Level of consciousness: alert Memory: Intact Appetite: decreased Interaction: cooperative Mini mental status exam(if necessary): 24-30 Results Result Diagrams: 07/30/18 04:48 07/30/18 04:48 Abnormal lab results 07/30/18 07/30/18 Range/Units 04:48 04:48 WBC 4.3 L (4.5-11.0) K/mm3 BUN 6 L (9-20) mg/dL Calcium 8.2 L (8.4-10.2) mg/dL Total Protein 6.1 L (6.3-8.2) g/dL Albumin 3.5 L (3.9-5) g/dL All other labs normal. Assessment and Plan Assessment and plan: Impression: Schizoaffective disorder, bipolar type thought process is currently disorganized. He denies suicidal or homicidal ideation. He denies hallucinations. Recommendations: Plan to reevaluate in 24 hours to see if he meets criteria for 1013 Plan to start risperdal tomorrow dispo: continue medical treatment per the medical team. If the 1013 is rescinded, he will follow up with [facility]. He has established care there. staffed with Dr. Michael
[2018-07-31] MEDS: NS/KCL 20MEQ 20 MEQ/1,000 ML BAG IV SCH ×2 (04:01→13:25)
--- NOTE | 2018-07-31 07:04 | Progress Note ---
Assessment and Plan Assessment and plan: Patient is a 38 yo man with a history of schizophrenia, bipolar disoder and tobacco dependency who presented to [facility] with bloody emesis and dark stools. In the ED, patient admits to having suicidal ideation. He plans to kill himself with a knife, so he was placed on 1013. Suicidal ideation-On 101: consulted Psych Mild Upper GI bleed with H/H normal due to Mild Gastritis and mild hiatal hernia, resolved: treated with iv protonix and consulted GI, EGD done, now on oral protonix Mild hypokalemia-repleted, resolved Isolated AST mild elevation, 70-->47-->31, normal ALT, bilirubin, alk phosph: resolved Psychiatric disorder (schizophrenia and bipolar)-Psych team follow-up Tobacco dependency: counseled on stopping DVT prophylaxis with SCD Disposition: medically cleared for inpatient psych. Psych considering rescinding 1012 History Interval history: Patient was seen and examined. Follow-up on current diagnosis of bloody emesis and SI. No overnight events reported to me. Patient denies any chest pain, shortness breath, or severe headaches. Imaging, nursing note, chart, labs and old chart reviewed. Discussed with patient. Hospitalist Physical - Physical exam Narrative exam: Gen: WDWN, NAD, Awake, Alert, Orientated HEENT: NCAT, EOMI, PERRL, OP Clear Neck: supple, no adenopathy, no thyromegaly, no JVD CVS/Heart: Regular bradycardia, normal S1S2, pulses present bilaterally Chest/Lungs: CTA B, Symmetrical chest expansion, good air entry bilaterally GI/Abdomen: soft, NTND, good bowel sounds, no guarding or rebound /Bladder: no suprapubic tenderness, no CVA or paraspinal tenderness Extermity/Skin: no c/c/e, no obvious rash MSK: FROM x 4 Neuro: CN 2-12 grossly intact, no new focal deficits Psych: calm - Constitutional Vitals: Temp Pulse Resp BP Pulse Ox 97.6 F 52 L 16 102/56 98 07/31/18 06:52 07/31/18 06:52 07/31/18 06:52 07/31/18 06:52 07/31/18 06:52 General appearance: Present: no acute distress Results - Labs CBC & Chem 7: 07/30/18 04:48 07/30/18 04:48 Labs: Laboratory Last Values WBC 4.3 K/mm3 (4.5-11.0) L 07/30/18 04:48 RBC 4.20 M/mm3 (3.65-5.03) 07/30/18 04:48 Hgb 12.5 gm/dl (11.8-15.2) 07/30/18 04:48 Hct 36.6 % (35.5-45.6) 07/30/18 04:48 MCV 87 fl (84-94) 07/30/18 04:48 MCH 30 pg (28-32) 07/30/18 04:48 MCHC 34 % (32-34) 07/30/18 04:48 RDW 14.1 % (13.2-15.2) 07/30/18 04:48 Plt Count 279 K/mm3 (140-440) 07/30/18 04:48 Lymph % (Auto) 30.1 % (13.4-35.0) 07/28/18 19:22 [place] % (Auto) 9.6 % (0.0-7.3) H 07/28/18 19:22 Eos % (Auto) 5.7 % (0.0-4.3) H 07/28/18 19:22 Baso % (Auto) 0.5 % (0.0-1.8) 07/28/18 19:22 Lymph # 1.7 K/mm3 (1.2-5.4) 07/28/18 19:22 [place] # 0.5 K/mm3 (0.0-0.8) 07/28/18 19:22 Eos # 0.3 K/mm3 (0.0-0.4) 07/28/18 19:22 Baso # 0.0 K/mm3 (0.0-0.1) 07/28/18 19:22 Seg Neutrophils % 54.1 % (40.0-70.0) 07/28/18 19: Seg Neutrophils # 3.0 K/mm3 (1.8-7.7) 07/28/18 19:22 Sodium 140 mmol/L (137-145) 07/30/18 04:48 Potassium 3.7 mmol/L (3.6-5.0) 07/30/18 04:48 Chloride 104.6 mmol/L (98-107) 07/30/18 04:48 Carbon Dioxide 25 mmol/L (22-30) 07/30/18 04:48 14 mmol/L 07/30/18 04:48 BUN 6 mg/dL (9-20) L 07/30/18 04:48 1.0 mg/dL (0.8-1.5) 07/30/18 04:48 Estimated GFR > 60 ml/min 07/30/18 04:48 6 % 07/30/18 04:48 Glucose 77 mg/dL (75-100) 07/30/18 04:48 Calcium 8.2 mg/dL (8.4-10.2) L 07/30/18 04:48 Magnesium 2.00 mg/dL (1.7-2.3) 07/29/18 05:56 0.40 mg/dL (0.1-1.2) 07/30/18 04:48 < 0.2 mg/dL (0-0.2) 07/29/18 05:56 0.3 mg/dL 07/29/18 05:56 AST 31 units/L (5-40) 07/30/18 04:48 ALT 16 units/L (7-56) 07/30/18 04:48 71 units/L (35-129) 07/30/18 04:48 6.1 g/dL (6.3-8.2) L 07/30/18 04:48 3.5 g/dL (3.9-5) L 07/30/18 04:48 1.3 % 07/30/18 04:48 Straw (Yellow) 07/28/18 19:32 Clear (Clear) 07/28/18 19:32 7.0 (5.0-7.0) 07/28/18 19:32 Ur Specific [place] 1.003 (1.003-1.030) 07/28/18 19:32 <15 mg/dl mg/dL (Negative) 07/28/18 19:32 Neg mg/dL (Negative) 07/28/18 19:32 Neg mg/dL (Negative) 07/28/18 19:32 Neg (Negative) 07/28/18 19:32 Neg (Negative) 07/28/18 19:32 Neg (Negative) 05/23/19 19:32 < 2.0 mg/dL (<2.0) 07/28/18 19:32 Ur Leukocyte Esterase Neg (Negative) 07/28/18 19:32 0.0 /HPF (0.0-6.0) 07/28/18 19:32 1.0 /HPF (0.0-6.0) 07/28/18 19:32 Salicylates < 0.3 mg/dL (2.8-20.0) L 07/28/18 19:22 Presumptive negative 07/28/18 19:32 Presumptive negative 07/28/18 19:32 Acetaminophen < 5.0 ug/mL (10.0-30.0) L 07/28/18 19:22 Ur Barbiturates Screen Presumptive negative 07/28/18 19:32 Ur Phencyclidine Scrn Presumptive negative 07/28/18 19:32 Ur Amphetamines Screen Presumptive negative 07/28/18 19:32 U Benzodiazepines Scrn Presumptive negative 07/28/18 19:32 Presumptive negative 07/28/18 19:32 U Marijuana (THC) Screen Presumptive negative 07/28/18 19:32 Disclamer 07/28/18 19:32 Plasma/Serum Alcohol < 0.01 % (0-0.07) 07/28/18 19:22 Active Medications - Current Medications Current Medications: Generic Name Dose Route Start Last Admin Trade Name Freq PRN Reason Stop Dose Admin Acetaminophen 650 mg 07/28/18 22:21 Tylenol PO Q4H PRN Pain MILD(1-3)/Fever >100.5/ZAMBRANO Docusate Sodium 100 mg 07/30/18 10:00 07/30/18 21:25 Colace PO 100 mg BID SEBAS Administration Hydromorphone HCl 0.5 mg 07/28/18 22:21 Dilaudid IV Q3H PRN Pain , Severe (7-10) Potassium Chloride/Sodium Chloride 20 meq in 1,000 mls @ 100 mls/hr 07/28/18 23:00 07/31/18 04:01 Ns/Kcl 20meq IV 100 mls/hr DIRECT SEBAS Administration Magnesium Hydroxide 30 ml 07/30/18 04:34 Milk Of Magnesia PO QDAY PRN Constipation Ondansetron HCl 4 mg 07/28/18 22:21 Zofran IV Q8H PRN Nausea And Vomiting Oxycodone/Acetaminophen 1 tab 07/28/18 22:21 07/29/18 19:26 Percocet 5/325 PO 1 tab Q6H PRN Administration Pain, Moderate (4-6) Pantoprazole Sodium 40 mg 07/30/18 10:00 07/30/18 09:14 Protonix PO 40 mg DAILY SEBAS Administration Polyethylene Glycol 17 gm 07/30/18 04:33 Miralax 3350 PO QDAY PRN Constipation Sodium Chloride 10 ml 07/29/18 10:00 07/30/18 21:25 Sodium Chloride Flush Syringe 10 Ml IV 10 ml BID SEBAS Administration Sodium Chloride 10 ml 07/28/18 22:21 Sodium Chloride Flush Syringe 10 Ml IV PRN PRN LINE FLUSH
[2018-07-31] MEDS: COLACE PO SCH ×2 (09:30→22:48)
[2018-07-31] MEDS: PROTONIX PO SCH (09:30)
[2018-07-31] MEDS: SODIUM CHLORIDE FLUSH SYRINGE 10 ML IV SCH ×2 (09:31→22:47)
--- NOTE | 2018-07-31 18:09 | Progress Note ---
Subjective - Reason for Consult Consult date: 07/31/18 Reason for consult: follow up - Chief Complaint Chief complaint: "I'm ready to go." 38 year old AAM with history of schizoaffective disorder, bipolar type and takes depakote 500mg bid, risperdal 2 or 3mg hs, trazodone 50mg, and cogentin daily. He was homeless for 8-9 years and within the last 1-2 months, he was able to secure an apartment with a housing voucher. His SS was restarted. He has estab [facility] mental health services with [facility]. He is on the ACT team and starts the day program 08/02/2018. His mother will be visiting this evening. He states she is supportive. The record indicates he reported suicidal ideation with a plan to stab himself. He states he did say he wanted to hurt himself but attributed it to "not feeling well" when he came in to the hospital. He adamately states he does not want to harm himself. "I have never hurt myself in all these years." He denies homicidal ideation. He denies hallucinations. His thought process is organized today. Mental Status Exam - Vital signs Last Vital Signs Temp 98.0 F 07/31/18 11:31 Pulse 57 L 07/31/18 11:31 Resp 16 07/31/18 11:31 BP 109/69 07/31/18 11:31 Pulse Ox 99 07/31/18 11:31 - Exam Narrative exam: Orientation: time, place, person Affect: normal Mood: calm Thought content: other (no SI/HI), goal oriented Thought Process: organized Perceptions: none Speech: normal rate and pattern Concentration: focused Motor activity: restless Level of consciousness: alert Memory: Intact Appetite: fair Interaction: cooperative Mini mental status exam(if necessary): 24-30 Assessment and Plan Impression: Schizoaffective disorder, bipolar type Thought process is logical. He denies suicidal or homicidal ideation. He denies hallucinations. No acute safety concerns were identified. Recommendations: He states he has medications of risperdal, depakote, and trazodone at home. He plans to resume them. He is recommended to discuss his meds with the ACT team psychiatrist and provide records from his hospital visit. dispo: He will follow up with [facility] ACT team and day program services. He is scheduled to start the day program in 2 days and the ACT team will see him tomorrow. safety plan complete. He does not have firearms. He should leave with his mother or the ACT team when discharged. staffed with Dr. Michael
[2018-08-01] MEDS: NS/KCL 20MEQ 20 MEQ/1,000 ML BAG IV SCH (00:23)
--- NOTE | 2018-08-01 09:16 | Progress Note ---
Subjective - Reason for Consult Consult date: 08/01/18 Reason for consult: Psychiatry Follow-up - Chief Complaint Chief complaint: "Hello" 38 year old AAM with history of schizoaffective disorder, bipolar type and takes depakote 500mg bid, risperdal 2 or 3mg hs, trazodone 50mg, and cogentin daily. Psychiatry was consulted to see the patient for SI's. Per the record, the psy team rescinded the patient's 1013 yesterday 07/31/2018. The patient was still on a 1013 this morning. Today the patient is calm and cooperative during the assessment. He confirmed that he has outpatient psy services set up with [facility]. He denies SI/HI's and AVH's. He stated that he do not need prescriptions because he has medication at home. Mental Status Exam - Vital signs Last Vital Signs Temp 98.5 F 08/01/18 06:09 Pulse 44 L 08/01/18 06:09 Resp 18 08/01/18 06:09 BP 137/59 08/01/18 06:09 Pulse Ox 98 08/01/18 06:09 - Exam Narrative exam: MSE: Appearance: calm, cooperative Behavior: regular eye contact Speech: regular rate and tone Mood: "better" Affect: congruent to mood Thought Process: logical Thought Content: denies SI/HI's and AVH's Motor Activity: sitting up in bed Cognition: A/O x 3 Insight: appropriate Judgment: appropriate Assessment and Plan Impression: Hx of Schizoaffective DO. Today the patient was calm and cooperative during the assessment. The patient is no threat to self. DDx: Bipolar DO Recommendation/Plan: The patient's 1013 was rescinded yesterday 07/31/2018. The patient do not need any prescriptions for his home medications (Depakote, Trazodone, and Risperdal). Dispo: The patient can follow up with [facility] for outpatient psy services. Will staff with Dr Dom Michael,
--- NOTE | 2018-08-01 11:18 | Discharge Summary ---
Providers - Providers Date of Admission: 07/28/18 22:21 Date of discharge: 08/01/18 Attending physician: EMIL ZAMORANO 07/28/18 20:28 Consult to Physician [CONS] Routine Comment: Dr. Bustos spoke with Dr. 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 In the ED, patient admits to having suicidal ideation. He plans to kill himself with a knife, so he was placed on 1013. Discharge Diagnoses: Mild Upper GI bleed with H/H normal due to Mild Gastritis and mild hiatal hernia, resolved: treated with iv protonix and consulted GI, EGD done, now on oral protonix Suicidal ideation-consulted Psych, input noted Mild hypokalemia-repleted, resolved Isolated AST mild elevation, 70-->47-->31, normal ALT, bilirubin, alk phosph: resolved Psychiatric disorder (schizophrenia and bipolar)-Psych team follow-up Tobacco dependency: counseled on stopping DVT prophylaxis with SCD Disposition: medically cleared discharge home, Psych rescinded 1013 Disposition: DC-01 TO HOME OR SELFCARE Time spent for discharge: 34 minutes Core Measure Documentation - Palliative Care Palliative Care/ Comfort Measures: Not Applicable - Core Measures Any of the following diagnoses?: none - VTE Discharge Requirements Deep Vein Thrombosis/Pulmonary Embolism Present on Admission: No Has pt received <5 days of overlap therapy or INR<2.0: No Anticoagulant overlap therapy prescribed at discharge: No Contraindication No Overlap Therapy order at DC: Not Indicated Exam - Physical Exam Narrative exam: Gen: WDWN, NAD, Awake, Alert, Orientated HEENT: NCAT, EOMI, PERRL, OP Clear Neck: supple, no adenopathy, no thyromegaly, no JVD CVS/Heart: Regular bradycardia, normal S1S2, pulses present bilaterally Chest/Lungs: CTA B, Symmetrical chest expansion, good air entry bilaterally GI/Abdomen: soft, NTND, good bowel sounds, no guarding or rebound /Bladder: no suprapubic tenderness, no CVA or paraspinal tenderness Extermity/Skin: no c/c/e, no obvious rash MSK: FROM x 4 Neuro: CN 2-12 grossly intact, no new focal deficits Psych: calm, denies SI/HI - Constitutional Vitals: Temp Pulse Resp BP Pulse Ox 98.5 F 44 L 18 137/59 98 08/01/18 06:09 08/01/18 06:09 08/01/18 06:09 08/01/18 06:09 08/01/18 06:09 Plan Activity: other (no strenous activity unless cleared by PCP) Diet: regular Follow up with: QUOC ISAACS MD [Primary Care Provider] - 3-5 Days DARBY VILLELA MD [Staff Physician] - 7 Days Prescriptions: Pantoprazole [Protonix TAB] 40 mg PO DAILY #30 tablet
[2018-08-01 11:58] VITALS: BP 123/75
[2018-08-01] MEDS: PROTONIX PO SCH (13:06)
[2018-08-01] MEDS: SODIUM CHLORIDE FLUSH SYRINGE 10 ML IV SCH (13:06)
[2018-08-01] MEDS: COLACE PO SCH (13:06)
== END 2018-08-01 13:08 | disposition home or self-care (01) | DRG 378 ==
LOC: ED 18:38 → 3A 22:21
PROVIDERS: ADMIT Internal Medicine; ATTEND Internal Medicine
PROC: 0DJ08ZZ Inspection of Upper Intestinal Tract, Via Natural or Artificial Opening Endoscopic (ICD-10-PCS; principal; 2018-07-29)
DX: K29.71 Gastritis, unspecified, with bleeding (principal); R45.851 Suicidal ideations; E87.6 Hypokalemia; F17.210 Nicotine dependence, cigarettes, uncomplicated; R45.850 Homicidal ideations; K21.9 Gastro-esophageal reflux disease without esophagitis; K44.9 Diaphragmatic hernia without obstruction or gangrene; F25.0 Schizoaffective disorder, bipolar type
CPT/HCPCS: 36415; 74176; 80048; 80053; 80076; 80307; 80320; 81001; 83735; 85014; 85018; 85025; 85027; G0378; C9113; G0480; J2405; J2704; J7030

== ENCOUNTER 2018-08-08 23:51 | Emergency (ER) | payer SELFPAY ==
[2018-08-08 23:56] VITALS: BP 118/69
[2018-08-09 00:18] LABS: Basophils % (Auto) 0.6 % (0.0-1.8); Eosinophils # (Auto) 0.3 K/mm3 (0.0-0.4); Eosinophils % (Auto) 3.5 % (0.0-4.3); Hematocrit 37.8 % (35.5-45.6); Hemoglobin 13.6 gm/dl (11.8-15.2); Mean Corpuscular HGB Conc 36 % (32-34); Mean Corpuscular Volume 86 fl (84-94); Monocytes # (Auto) 0.7 K/mm3 (0.0-0.8); Monocytes % (Auto) 9.2 % (0.0-7.3); Platelet Count 278 K/mm3 (140-440); Red Blood Count 4.39 M/mm3 (3.65-5.03); Red Cell Distribution Width 14.4 % (13.2-15.2)
[2018-08-09 00:35] LABS: BUN/Creatinine Ratio 8; Blood Urea Nitrogen 7 mg/dL (9-20); Calcium 9.4 mg/dL (8.4-10.2); Hemolysis Index 2
== END 2018-08-09 01:50 | disposition left against medical advice (07) ==
LOC: ED 23:51
DX: R11.10 Vomiting, unspecified (principal); Z53.21 Procedure and treatment not carried out due to patient leaving prior to being seen by health care provider
CPT/HCPCS: 36415; 80048; 85025